=== PATIENT | male | born 1965 | race Caucasian/White ===

== ENCOUNTER → 2017-10-22 | Outpatient (CLI) | payer BC ==
[~2017-10-22] MED LIST: AMT25 PO; CHOL1CAP93 PO; LSN20 PO; OMEP20CA9 PO; PRAV20TA PO
--- NOTE | 2017-10-22 20:05 | DIAGNOSTIC IMAGING REPORT ---
LEFT THIRD FINGER 3 VIEWS CLINICAL HISTORY: Pain status post trauma COMPARISON: None. DISCUSSION: No fractures or dislocations are visualized. IMPRESSION: No fractures or dislocations identified. Electronically signed by: Nile Salomon M.D. 10/22/2017 8:04 PM Dictated Date/Time: 10/22/2017 8:03 PM
== END | disposition home or self-care (01) ==
LOC: C.RAD 19:43
PROVIDERS: ATTEND Student in an Organized Health Care Education/Training Program
DX: M25.542 Pain in joints of left hand (principal)